=== PATIENT | female | born 1990 | race African-American/Black ===

== ENCOUNTER 2017-01-26 15:58 | Inpatient (IN) ==
[2017-01-26] MEDS ORDERED: CERVIDIL VAGINAL VAG ONE (20:55)
[2017-01-26] MEDS ORDERED: PEPCID PO PRN (20:55)
[2017-01-26] MEDS ORDERED: ZOFRAN IV PRN ×2 (20:55)
[2017-01-26] MEDS ORDERED: BRETHINE SUBQ PRN (20:55)
[2017-01-26] MEDS ORDERED: AMBIEN PO PRN (20:55)
[2017-01-26] MEDS ORDERED: DEMEROL INJ PRN (20:55)
[2017-01-26] MEDS ORDERED: TYLENOL PO PRN (20:55)
[2017-01-26] MEDS ORDERED: PEPCID IV PRN (20:55)
[2017-01-26] MEDS ORDERED: STADOL IV PRN ×3 (20:55)
[2017-01-26] MEDS ORDERED: PITOCIN 30 UNITS/LR 30 UNITS/500 ML IV.SOLN IV SCH (20:55)
[2017-01-26] MEDS ORDERED: SODIUM CHLORIDE 0.9% INJ PRN (20:55)
[2017-01-26] MEDS ORDERED: KEFZOL 1 GM/D5W 1 GM/50 ML IVPB IV PRN (20:55)
[2017-01-26] MEDS ORDERED: PHENERGAN INJ PRN (20:55)
[2017-01-27 01:23] LABS: MANUAL DIFF NEEDED? NO
[2017-01-27 01:34] LABS: BASO% 0.3 % (0.0-0.8); EOS# 0.03 X1000 (0.0-0.7); EOS% 0.3 % (0.0-10.0); HEMATOCRIT 38.8 % (37.0-47.0); HEMOGLOBIN 13.4 g/dL (12.0-16.0); IMM GRAN# 0.03 X1000 (0.0-0.04); IMM GRAN% 0.3 % (0.0-0.5); LYMPH# 2.34 X1000 (1.2-3.4); LYMPH% 19.8 % (20.5-51.1); MCH 27.7 PG (27-31); MCHC 34.5 g/dL (33-37); MCV 80.2 FL (81-99); MONO# 0.53 X1000 (0.11-0.59); MONO% 4.5 % (1.7-9.3); MPV 10.2 FL (7.4-10.4); NEUT% 74.8 % (42.2-75.2); PLT 271 X1000 (130-400); RBC 4.84 XMIL (4.2-5.4)
[2017-01-27] MEDS ORDERED: CERVIDIL VAGINAL VAG ONE (01:46)
[2017-01-27] MEDS: LR 1,000 ML IV SCH ×5 (02:04→16:42)
[2017-01-27] MEDS ORDERED: XYLOCAINE-MPF 1% INJ ONE (07:57)
[2017-01-27] MEDS ORDERED: MINERAL OIL TOP ONE (07:57)
[2017-01-27] MEDS ORDERED: FENTANYL-BUPIV-NS 2 MCG-0.1% 200 ML EPIDURAL SCH (08:00)
[2017-01-27] MEDS ORDERED: CYTOTEC PO ONE (08:18)
[2017-01-27] MEDS ORDERED: HYDROXYZINE PO PRN (17:40)
[2017-01-27] MEDS ORDERED: BENADRYL PO PRN (17:40)
[2017-01-27] MEDS ORDERED: BOOSTRIX VACCINE IM ONE (17:40)
[2017-01-27] MEDS ORDERED: HYDROXYZINE IM PRN (17:40)
[2017-01-27] MEDS ORDERED: PITOCIN IM PRN (17:40)
[2017-01-27] MEDS ORDERED: M-M-R II VACCINE SUBQ ONE (17:40)
[2017-01-27] MEDS ORDERED: XYLOCAINE-MPF 1% INJ PRN (17:40)
[2017-01-27] MEDS ORDERED: CYTOTEC PO PRN (17:40)
[2017-01-27] MEDS ORDERED: PERI MEDS (DERMOPLAST/NUPERCAINAL/TUCKS) MISC PRN (17:40)
[2017-01-27] MEDS ORDERED: PITOCIN 30 UNITS/LR 30 UNITS/500 ML IV.SOLN IV ONE (17:40)
[2017-01-27] MEDS ORDERED: MINERAL OIL PO PRN (17:40)
[2017-01-27] MEDS ORDERED: AMBIEN PO PRN (17:40)
[2017-01-27] MEDS ORDERED: NORCO-5 PO PRN (17:40)
[2017-01-27] MEDS ORDERED: PERCOCET-5 PO PRN (17:40)
[2017-01-27] MEDS ORDERED: PITOCIN 20 UNITS/LR 20 UNITS/1,000 ML IV.SOLN IV SCH (17:40)
[2017-01-27] MEDS ORDERED: BENADRYL IV PRN (17:40)
[2017-01-27 18:18] LABS: UR AMPHETAMINES QUAL NONE DETECTED (NONE DETECT); UR BARBITUATES QUAL NONE DETECTED (NONE DETECT); UR BENZODIAZEPIN QUAL NONE DETECTED (NONE DETECT); UR CANNABINOIDS QUAL NONE DETECTED (NONE DETECT); UR COCAINE QUAL NONE DETECTED (NONE DETECT); UR MDMA QUAL NONE DETECTED (NONE DETECT); UR METHADONE QUAL NONE DETECTED (NONE DETECT); UR METHAMPHETAMINE QUAL NONE DETECTED (NONE DETECT); UR OPIATES QUAL NONE DETECTED (NONE DETECT); UR OXYCODONE QUAL NONE DETECTED (NONE DETECT); UR PCP QUAL NONE DETECTED (NONE DETECT); UR TCA QUAL NONE DETECTED (NONE DETECT)
[2017-01-27] MEDS: TRANDATE PO SCH (21:10)
[2017-01-27] MEDS: PERICOLACE PO SCH (21:10)
[2017-01-27] MEDS: MOTRIN PO PRN (23:03)
[2017-01-28 05:56] LABS: MANUAL DIFF NEEDED? NO
[2017-01-28 06:09] LABS: BASO% 0.1 % (0.0-0.8); EOS# 0.05 X1000 (0.0-0.7); EOS% 0.4 % (0.0-10.0); HEMATOCRIT 29.4 % (37.0-47.0); IMM GRAN# 0.02 X1000 (0.0-0.04); IMM GRAN% 0.1 % (0.0-0.5); LYMPH# 2.03 X1000 (1.2-3.4); LYMPH% 14.8 % (20.5-51.1); MCH 27.6 PG (27-31); MCV 81.2 FL (81-99); MONO# 0.99 X1000 (0.11-0.59); MONO% 7.2 % (1.7-9.3); MPV 10.5 FL (7.4-10.4); NEUT% 77.4 % (42.2-75.2); PLT 206 X1000 (130-400); RBC 3.62 XMIL (4.2-5.4)
[2017-01-28] MEDS: TRANDATE PO SCH ×2 (10:33→20:46)
[2017-01-28] MEDS: GLUCOPHAGE PO SCH ×5 (10:33→17:35)
[2017-01-28] MEDS: PERICOLACE PO SCH (20:46)
[2017-01-28] MEDS: MOTRIN PO PRN (23:40)
[2017-01-29 07:53] VITALS: BP 145/85
[2017-01-29] MEDS: GLUCOPHAGE PO SCH ×2 (10:03→10:04)
[2017-01-29] MEDS: TRANDATE PO SCH ×2 (10:03→10:04)
== END 2017-01-29 14:00 | disposition home or self-care (01) ==
LOC: P.LD 20:46 → P.WC 01-27 19:35
PROVIDERS: ADMIT Obstetrics & Gynecology; ATTEND Obstetrics & Gynecology